=== PATIENT | female | born 1945 | race Caucasian/White ===

== ENCOUNTER 2019-02-21 10:47 | Outpatient (RCR) | payer MEDICARE, SELFPAY | END 2019-03-15 23:59 | disposition home or self-care (01) | LOC: SPT 10:47 | PROVIDERS: Family Provider Physician Assistant; PCP Physician Assistant; Referring Provider Physician Assistant; Visit Provider Physician Assistant | DX: M25.511 Pain in right shoulder (principal) | CPT/HCPCS: 97110; 97161 ==

== ENCOUNTER 2019-03-16 06:00 | Outpatient (RCR) | payer MEDICARE, SELFPAY | END 2019-04-09 12:19 | disposition home or self-care (01) | LOC: SPT 06:00 | PROVIDERS: Family Provider Physician Assistant; PCP Physician Assistant; Referring Provider Physician Assistant; Visit Provider Physician Assistant | DX: M25.511 Pain in right shoulder (principal) | CPT/HCPCS: 97110 ==

== ENCOUNTER 2019-04-25 12:40 | Outpatient (CLI) | payer MEDICARE, SELFPAY ==
--- NOTE | 2019-04-25 12:48 | XR_ITS ---
WS: [id number] DEXA (DUAL ENERGY X-RAY ABSORPTIOMETRY) Bone mineral density was performed using a DN2K machine. HISTORY: OSTEOPOROSIS COMPARISON: 03/12/2015 Lumbar spine BMD (L1-L4): 0.932 g/cm2 T score: -2.1 Z score: -0.8 Total hip BMD: Right: 0.829 g/cm2. T score: -1.4 Z score: -0.2 10 year probability of a major osteoporotic fracture is 23%. Compared to the prior study from 03/12/2015. Lumbar spine bone mineral density has increased by 3.0%. RIGHT hip bone mineral density has increased by 4.0%. XR/XR DEXA axial skeleton* [id number] IMPRESSION: OSTEOPENIA based upon the WHO classification for females. Significant increase in bone mineral density within the lumbar spine and RIGHT hip since the prior study.
== END 2019-04-25 12:41 | disposition home or self-care (01) ==
PROVIDERS: Family Provider Physician Assistant; PCP Physician Assistant; Visit Provider Physician Assistant
DX: M81.0 Age-related osteoporosis without current pathological fracture (principal)
CPT/HCPCS: 77080

== ENCOUNTER 2019-07-05 13:09 | Outpatient (CLI) | payer MEDICARE, SELFPAY ==
--- NOTE | 2019-07-05 13:42 | MR_ITS ---
WS: [id number] MRI RIGHT SHOULDER HISTORY: RIGHT SHOULDER PAIN COMPARISON: None available. TECHNIQUE: Multiplanar sequences of the shoulder joint are submitted. Moderate AC joint arthritis. There is fluid along the joint space. Mild osteophyte encroachment upon the supraspinatus muscle. No fluid in the subacromial or subdeltoid bursa. No os acromion. There is a small joint effusion surrounding the humeral head and extending into the subscapularis rec ess. Small loose bodies are present within the fluid along the subscapularis tendon. There is increased signal in the distal subscapularis, supraspinatus and infraspinatus tendons. No re traction of the tendons or full-thickness tear. No muscle atrophy or edema. There is very significant fraying along the articular surfaces of the supraspinatus and infraspinatus tendons. Complete loss of cartilage over the humeral head with multiple subchondral cystic changes. Humeral he ad is slightly high riding. Significant narrowing of the glenohumeral joint with osteophytes extendin g into the joint space from the humeral head. There is abnormal signal in the anterior superior gleno id and the posterior glenoid. Biceps tendon is in normal position with an increase in fluid within the tendon sheath. MR/MR shoulder RT wo con* [id number] IMPRESSION: 1. Severe glenohumeral joint arthritis with loss of cartilage and subchondral cystic changes and osteophytes. 2. Moderate AC joint arthritis. 3. No full-thickness rotator cuff tear identified although there is significan t fraying along the articular surfaces of the infraspinatus, supraspinatus and subscapularis tendons with tendinopathy. 4. Glenohumeral joint effusion with small loose bodies. 5. Abnormal signal throughout the labrum and cartilage.
== END 2019-07-05 13:10 | disposition home or self-care (01) ==
PROVIDERS: Family Provider Physician Assistant; PCP Physician Assistant; Visit Provider Physician Assistant
DX: M25.511 Pain in right shoulder (principal); M19.011 Primary osteoarthritis, right shoulder; M25.411 Effusion, right shoulder
CPT/HCPCS: 73221

== ENCOUNTER 2019-08-21 12:41 | Outpatient (CLI) | payer MEDICARE, SELFPAY ==
[2019-08-21 12:56] VITALS: BP 121/82; PULSE 86; TEMP 36.6; O2SAT 94
[2019-08-21] MEDS: denosumab 60 mg SDV (13:48)
[2019-08-21 13:54] VITALS: BP 124/84; PULSE 85; TEMP 36.6
== END 2019-08-21 12:42 | disposition home or self-care (01) ==
LOC: RHEOACUTE 12:42
PROVIDERS: Family Provider Physician Assistant; PCP Physician Assistant; Visit Provider Internal Medicine Rheumatology
DX: M81.0 Age-related osteoporosis without current pathological fracture (principal)
CPT/HCPCS: 96372; J0897

== ENCOUNTER 2020-05-12 13:45 | Outpatient (CLI) | payer MEDICARE, SELFPAY ==
[2020-05-12] MEDS: denosumab 60 mg SDV SUBCUT (14:15)
== END 2020-05-12 13:46 | disposition home or self-care (01) ==
LOC: ONCMED 13:53
PROVIDERS: PCP Physician Assistant; Visit Provider Physician Assistant
DX: M81.0 Age-related osteoporosis without current pathological fracture (principal)
CPT/HCPCS: 96372; J0897

== ENCOUNTER → 2020-08-06 11:15 | Outpatient (BNVA) | payer MEDICARE, SELFPAY | PROVIDERS: PCP Physician Assistant; Visit Provider Obstetrics & Gynecology | DX: N39.3 Stress incontinence (female) (male) (principal); N81.4 Uterovaginal prolapse, unspecified; N81.6 Rectocele; Z41.9 Encounter for procedure for purposes other than remedying health state, unspecified; Z20.822 Contact with and (suspected) exposure to COVID-19 | CPT/HCPCS: 87635 ==

== ENCOUNTER 2020-08-11 10:16 | Observation (INO) | payer MEDICARE, SELFPAY ==
[2020-08-06 13:09] VITALS: BMI 26.6
--- NOTE | 2020-08-06 13:47 | ANES.PREANE2 ---
Pre-Anesthetic Assessment Pre-Anesthetic Assessment: Height/Weight: Height 1.73 m Weight 79.379 kg Preop Diagnosis: uterine prolapse, cystocele, rectocele, loose perineal body Proposed Procedure: Operation Date: 08/11/20 07:00 Proposed Procedures p Total Vaginal Hysterectomy [id number] 24390 19630 N81.4 N81.6 N39.3(Not Applicable) - Shaunna Butt MD s bilateral Salpingo Oophorectomy (Open)(Bilateral) - Shaunna Butt MD s Posterior Repair(Not Applicable) - Shaunna Butt MD s possible Anterior Repair(Not Applicable) - Shaunna Butt MD s Perineorrhaphy(Not Applicable) - Shaunna Butt MD s suburethral sling(Not Applicable) - Shaunna Butt MD Familial anesthetic complications: None Social: Social History: No alcohol and No tobacco Exam: Pre-Anes Outpt Exam: alert, oriented x 3, clear to auscultation bilaterally and regular rate & rhythm Airway: Cervical ROM: WNL MP: 2 Dentition: Other (missing) Pulmonary: Comments: hx chronic bronchitis CV/HEM: CV/HEM: HTN Comments: able to achieve 4 METS Metabolic: Metabolic: Hyperlipidemia and Thyroid Anesthetic Plan: ASA status: 2 Anesthesia: General Risk of > 500 ml blood loss (7ml/kg in children): No PFSH Anesthesia PFSH: Medical History Fibromyalgia Hypertension Hypothyroid Lichen sclerosus (~2011) dx by Dr. Mohamud-- biopsy confirmed Recto-vaginal fistula Surgical History Hx of dilation and curettage (1971) Hx of shoulder surgery (~07/2019) R shoulder Hx of tubal ligation (~1979) Family History Mother Hypertension Stroke Hypercholesteremia Family/Other Colon cancer Maternal Aunt Sister Thyroid disease x3 Denies family history of Ovarian cancer Diabetes Heart disease Breast cancer Bleeding disorder Uterine cancer Social History Additional social history: - Tobacco use: never Alcohol use: never Drug use: never Data Anesthesia CBC & Chem 7: 08/06/20 13:20 08/06/20 13:20 Cardiac Studies: No Data to Display
[2020-08-06 13:48] LABS: Eosinophils # 0.1 10^3/uL (0.0-0.8); Eosinophils % 3.4 %; Hematocrit 39.9 % (37.0-47.0); Hemoglobin 12.7 g/dL (11.5-15.3); Lymphocytes # 1.2 10^3/uL (0.8-4.8); Lymphocytes % 30.2 %; Mean Corpuscular HGB Conc 31.8 g/dL (30.0-36.0); Mean Corpuscular Hemoglobin 26.3 pg (28.0-34.0); Mean Corpuscular Volume 82.8 fL (81-99); Mean Platelet Volume 10.4 fL (7.4-10.4); Monocytes # 0.5 10^3/uL (0.2-0.9); Monocytes % 11.9 %; Neutrophils # 2.18 10^3/uL (1.8-7.7); Nucleated Red Blood Cells % 0 %; Platelet Count 256 10^3/cmm (130-400); Red Blood Count 4.82 10^6/uL (4.1-5.3); Red Cell Distribution Width 14.4 % (12.1-15.1); White Blood Count 4.1 10^3/uL (4.0-10.0)
[2020-08-06 14:04] LABS: Anion Gap 12.7 (5-19); Blood Urea Nitrogen 10 mg/dL (8-23); Calcium 8.8 mg/dL (8.5-10.5); Carbon Dioxide 29 mmol/L (22-29); Chloride 104 mmol/L (98-107); Glucose 98 mg/dL (65-115); Osmolality Calculated 293 mOsm/kg (285-295); Potassium 3.7 mmol/L (3.5-5.1); Sodium 142 mmol/L (136-145)
[2020-08-11] VITALS (23 sets, daily range): BP systolic 109–142; BP diastolic 58–81; PULSE 64–88; RESP 13–20; TEMP 36.3–37.2; O2SAT 93–100; BMI 26.6
[2020-08-11] MEDS: acetaminophen 1,000 MG/100 ML PIGGYBACK 400 MG IV (06:40)
[2020-08-11] MEDS: gabapentin 300 mg Capsule PO (06:47)
[2020-08-11] MEDS: sodium chloride 0.9% 1,000 ML 30 ML IV (06:47)
[2020-08-11] MEDS: CELEcoxib 200 mg Capsule 400 MG PO (06:48)
[2020-08-11] MEDS: ketorolac 30 mg/mL INJ IVP ×3 (06:54→19:10)
--- NOTE | 2020-08-11 07:04 | W.PM.OPSUD ---
Surgery/Procedure H&P Update DATE OF PROCEDURE: August 11, 2020 DATE H&P PERFORMED: 08/06/20 H&P UPDATE INFORMATION: I have reviewed H&P completed within last 30 days, I have examined patient prior to procedure and No changes to prior documentation PREOP DIAGNOSIS: uterine prolapse, cystocele, rectocele, loose perineal body PLANNED PROCEDURE: Operation Date: 08/11/20 07:00 Proposed Procedures p Total Vaginal Hysterectomy 77163 57443 16494 31785 N81.4 N81.6 N39.3(Not Applicable) - Shaunna Butt MD s bilateral Salpingo Oophorectomy (Open)(Bilateral) - Shaunna Butt MD s Posterior Repair(Not Applicable) - Shaunna Butt MD s possible Anterior Repair(Not Applicable) - Shaunna Butt MD s Perineorrhaphy(Not Applicable) - Shaunna Butt MD s suburethral sling(Not Applicable) - Shaunna Butt MD
--- NOTE | 2020-08-11 07:26 | P.ANESUD_ITS ---
Pre-Anesthetic Update Pre-Anesthetic Assessment: Date of Surgery/Procedure: 08/11/20 Preop Rachana gnosis: uterine prolapse, cystocele, rectocele, loose perineal body Proposed Procedure: Operation Date: 08/11/20 07:00 Proposed Procedures p Total Vaginal Hysterectomy 85997 44615 24280 84379 N81.4 N81.6 N39.3(Not Applicable) - Shaunna Butt MD s bilateral Salpingo Oophorectomy (Open)(Bilateral) - Shaunna Butt MD s Posterior Repair(Not Applicable) - Shaunna Butt MD s possible Anterior Repair(Not Applicable) - Shaunna Butt MD s Perineorrhaphy(Not Applicable) - Shaunna Butt MD s suburethral sling(Not Applicable) - Shaunna Butt MD Any changes to Pre-Anesthetic Assessment?: No Last Intake: Intake Last Liquid Date 08/10/20 Last Liquid Time 20:00 Last Solid Date 08/10/20 Last Solid Time 20:00 Exam: Pre-Anes Outpt Exam: alert, oriented x 3, clear to auscultation bilaterally and regular rate & rhythm Cardiac Studies: No Data to Display
[2020-08-11] MEDS: vasopressin 20 unit/mL INJ 12 UNIT INJECTION (07:39)
--- NOTE | 2020-08-11 10:11 | P.OP_ITS ---
Operative Report Date of procedure: August 11, 2020 Pre-op Diagnosis: uterine prolapse, cystocele, rectocele, loose perineal body Post-op diagnosis: same Post-op Findings: uterine prolapse, loose perineal body, grade 1 rectocele. Normal efflux from bilateral ureters Procedure Done: total vaginal hysterectomy, cystoscopy, perineorrhaphy Specimens removed/disposition: uterus sent to pathology Anesthesia: General Estimated blood loss (mL): 200 IV fluids (mL): 2,000 Urine output (mL): 1,000 Complications: Lack of indigo carmine causing a delay in case. Methylene blue used but very slow to move through. This cause quite a delay in case. Bilateral spill of methylene blue visualized Condition: stable Disposition: PACU Brief History: The patient presented with symptommatic rectocele and uterine prolapse. She wanted to have surgery to correct defect. Procedure: The patient was taken to the operating room where general anesthesia was administered and found to be adequate. She was prepped and draped in the normal sterile fashion in the dorsal lithotomy position in [facility]. A Moran catheter was placed. A weighted speculum was placed into the vagina and the anterior and posterior lip of the cervix was grasped with a Webster tenaculum. 10 mL of dilute Pitressin was injected at the vesicovaginal junction. A circumferential incision was made at the vesicovaginal junction and the vaginal mucosa reflected cephalad. The posterior peritoneum was entered sharply with the Metzenbaum scissors and the long weighted speculum replaced. The uterus was extremely small and there were no uterosacral ligaments. The vaginal mucosa was reflected all the way to the utero-ovarian ligaments bilaterally. The utero- ovarian ligaments were clamped, cut and suture-ligated bilaterally and the specimen was removed. The bilateral fallopian tubes and ovaries were not able to be visualized. There was some bleeding from the pelvic sidewall on the left. This was clamped, cut and suture ligated and there was excellent hemostasis. Due to this bleeding, I decided to perform the cystoscopy prior to closing the vaginal cuff. The Moran catheter was removed and the cystoscope advanced into the bladder. The patient was given Methylene blue because there was no indigo carmine available, due to shortage. Bilateral spill was noted. There were no injuries or deficits noted in the bladder. The cystoscope was removed and the Moran was replaced. When I went to close the vaginal cuff, the was new moderate bleeding from the vagina. It was difficult to see where the bleeding was coming from. I identified an area on each pelvic sidewall and clamped and suture ligated these areas. There was excellent hemostasis. The vaginal cuff was closed with 0 Vicryl in a running locked pattern incorporating the peritoneum into the cuff. Attention was then turned back to cystoscopy. Since I had put a new stitch on each pelvic sidewall, I wanted to re-visualize the ureteral orifices. The cystoscope was reintroduced back into the bladder. Initially, no efflux was visualized. 5ml of lasix was given IV and the left ureter was seen to efflux. The right ureter had peristalsis, but no efflux. I watched for about 20 minutes [address] no efflux[address] Dr Henry (urology) was called to possibly place a stent. The cystoscope was removed. I turned my attention to the perineorrhaphy. An Allis clamp was placed in the midline, just inside the vaginal vault. A wedge of the perineal body was removed sharply with the scalpel. The incision was repaired in the usual fashion with O-Vicryl. There was excellent hemostasis. Dr. Henry called and said that he would be here in about 10 minutes. I replaced the cystoscope into the bladder and drained all of the fluid, then filled it up again. Immediately, the right ureter began to have peristalsis and it effluxed several times. We notified Dr. Henry that he wasn't needed. The cystoscope was removed and the moran catheter replaced. Vaginal packing was placed for good hemostasis. Tolerated the procedure well. Sponge lap and needle counts were correct x3. She was taken to the recovery room in stable condition.
--- NOTE | 2020-08-11 10:48 | SUR.PHASEI ---
1048- ORAL AIRWAY OUT, SIMPLE MASK AT 6 LPM SAT 97%
--- NOTE | 2020-08-11 14:34 | ANE.PACU2 ---
Inpatient post-anesthesia follow up: Airway intact: Yes Vital signs: Temperature 97.7 F Pulse Rate 75 Respiratory Rate 18 Blood Pressure 141/79 Pulse Oximetry 97 Oxygen Delivery Me thod Nasal Cannula Oxygen Flow Rate 2 Fraction of Inspir ed Oxygen Hydration adequate: Yes Nausea and vomiting: No Pain level: 2 Mental status: Baseline
[2020-08-11] MEDS: dextrose 5%-lactated ringers 1,000 ML 125 ML IV (15:13)
[2020-08-11] MEDS: acetaminophen 325 mg Tablet 650 MG PO (21:25)
[2020-08-12] MEDS: ketorolac 30 mg/mL INJ IVP (01:06)
[2020-08-12 05:20] VITALS: BP 110/65; PULSE 64; RESP 16; TEMP 36.8; O2SAT 93
[2020-08-12 05:40] LABS: Hematocrit 32.7 % (37.0-47.0); Hemoglobin 10.4 g/dL (11.5-15.3); Mean Corpuscular HGB Conc 31.8 g/dL (30.0-36.0); Mean Corpuscular Hemoglobin 27.1 pg (28.0-34.0); Mean Corpuscular Volume 85.2 fL (81-99); Mean Platelet Volume 9.9 fL (7.4-10.4); Platelet Count 211 10^3/cmm (130-400); Red Blood Count 3.84 10^6/uL (4.1-5.3); Red Cell Distribution Width 14.7 % (12.1-15.1); White Blood Count 11.8 10^3/uL (4.0-10.0)
[2020-08-12] MEDS: ibuprofen 800 mg tablet PO (09:23)
[2020-08-12] MEDS: levothyroxine 112 mcg Tablet PO (09:23)
[2020-08-12] MEDS: lisinopril 10 mg Tablet PO (09:23)
--- NOTE | 2020-08-12 10:10 | PM.DCS ---
Discharge Providers Date of Admission: 08/11/20 10:16 Date of Discharge: August 12, 2020 Attending Provider at Admission: Shaunna Butt MD Attending Provider at Discharge: Shaunna Butt MD Primary Care Provider: Makayla Wang Diagnoses at Discharge Discharge Diagnosis (1) Postoperative state: Status: Acute Reason for Visit Reason for Visit: tvh with bilateral salpingo-oophorectomy Hospital Course Hospital Course The patient was admitted for surgery. She did well postoperatively and she was ready for discharge on day #1 Physical Exam Narrative: EXAM NARRATIVE: The patient is doing well this morning. She is pain free. She is tolerating a regular diet. She is ambulating without difficulty Const: COMMON NORMALS: no acute distress, patient oriented x3, no limitations, healthy appearing, alert and well nourished GENERAL APPEARANCE: cooperative, comfortable, well kempt and well developed ORIENTATION/CONSCIOUSNESS: Yes awake, Yes oriented to person, Yes oriented to place and Yes oriented to time Resp: COMMON NORMALS: normal respiratory effort EFFORT & INSPECTION: Yes able to speak in complete sentences : COMMON NORMALS: Yes normal external appearance (small amount of bruising to left crural area) and Yes normal appearance of the vagina BLADDER/KIDNEY EXAM: Yes other (vaginal packing removed) Extremity: COMMON NORMALS: normal to inspection, no clubbing, cyanosis or edema and no calf tenderness Neuro: COMMON NORMALS: patient oriented x3 SENSORIUM/ORIENTATION: Yes alert, Yes oriented to person, Yes oriented to place and Yes oriented to time Psych: COMMON NORMALS: mental status grossly normal, Normal thought process present, cooperative, normal affect, speech normal and activity/motor behavior normal APPEARANCE: Yes well kempt ATTITUDE: Yes calm and Yes engaged ACTIVITY/MOTOR BEHAVIOR: Yes appropriate eye contact SPEECH: Yes normal speech THOUGHT PROCESS: Normal thought process present Skin: WOUNDS: Yes surgical site (clean/dry/intact. Bruising to left crura) Urinary Catheter Management^: Bush: Cath Placed During This Visit: yes Reason for Continuing Indwelling Catheter: Perioperative Use in Selected Surgeries Urinary Catheter Date of Insertion: 08/11/20 Urinary Catheter Time of Insertion: 07:27 Discharge Data Data Completed and Pending: Pending at discharge Category Date Time Status ES surgery / GI i mages Routine Exams 08/11/20 07:24 Ordered Pathology: Surgic al [PTH] Routine Pth 08/11/20 10:26 Received Labs from last 24 hours 08/12/20 05:25 WBC 11.8 H RBC 3.84 L Hgb 10.4 L Hct 32.7 L MCV 85.2 MCH 27.1 L MCHC 31.8 RDW 14.7 Plt Count 211 MPV 9.9 Vitals: Last Vital Signs Temp 98.2 F 08/12/20 05:20 Pulse 64 08/12/20 05:20 Resp 16 08/12/20 05:20 BP 110/65 08/12/20 05:20 Pulse Ox 93 08/12/20 05:20 Discharge Plan Discharge Patient Disposition: Home Condition: Stable Prescriptions: New hydrocodone-acetaminophen 5-325 mg Tablet 1 tab PO Q6H PRN (Reason: Moderate To Severe Pain) Qty: 10 RF: 0 Continued lisinopril 10 mg tablet 10 mg PO DAILY RF: 0 atorvastatin 20 mg tablet 40 mg PO DAILY RF: 0 cyclobenzaprine 5 mg tablet 10 mg PO DAILY RF: 0 levothyroxine 88 mcg capsule 112 mcg PO DAILY RF: 0 multivitamin [One-A-Day Essential] Tablet 1 tab PO DAILY RF: 0 duloxetine 30 mg capsule,delayed release(DR/EC) 30 mg PO DAILY RF: 0 clobetasol 0.05 % cream 1 applic topical .bi-weekly Qty: 30 RF: 2 Discharge Orders: Discharge Order (Routine); Ordered 08/12/20 Ordered By: Shaunna Butt Referrals: Shaunna Butt MD [Physician] - 08/20/20 3:15 pm (1 week post-op appointment: 08/20/20 @3:15 6 week post-op appointment: 09/17/20 @12:45) Patient Instructions: Vaginal Hysterectomy (DC), OB Discharge Report, OB Food/Drug Interaction Guide, Opioid Safety Discharge Attestations Time Spent in Discharge Care*: less than 30 min Quality Metrics Clinical Quality Measures During this hospital stay, did patient experience: None Coding Level of Care Code Acute Chg FW DC note Diagnoses Postoperative state Z98.890
[2020-08-12 11:05] VITALS: BP 153/87; PULSE 71; RESP 17; TEMP 36.8
== END 2020-08-12 11:05 | disposition home or self-care (01) ==
LOC: OBGYN 10:17
PROVIDERS: Admitting Provider Obstetrics & Gynecology; PCP Physician Assistant; Visit Provider Obstetrics & Gynecology
PROC: (CPT 56810; principal; 2020-08-11 07:00)
PROC: 0HQ9XZZ Repair Perineum Skin, External Approach (ICD-10-PCS; CPT 56810; 2020-08-11 07:00)
PROC: 0TJB8ZZ Inspection of Bladder, Via Natural or Artificial Opening Endoscopic (ICD-10-PCS; CPT 52000; 2020-08-11 07:00)
DX: N81.4 Uterovaginal prolapse, unspecified (principal); N81.84 Pelvic muscle wasting; N81.6 Rectocele; I10 Essential (primary) hypertension; E78.5 Hyperlipidemia, unspecified; M79.7 Fibromyalgia; E03.9 Hypothyroidism, unspecified
CPT/HCPCS: 56810; 58260; 36415; 80048; 85025; 85027; 86850; 86900; 87086; 88305; 96365; 96374; G0378; J1100; J1885; J2250; J2370; J2405; J2550; J2704; J2710; J3010; J3370; J3490; J7030; J7050

== ENCOUNTER → 2020-09-10 10:48 | Outpatient (BNVA) | payer MEDICARE, SELFPAY | PROVIDERS: PCP Physician Assistant; Visit Provider Obstetrics & Gynecology | DX: N89.8 Other specified noninflammatory disorders of vagina (principal) | CPT/HCPCS: 87481; 87512; 87798; 87799 ==

== ENCOUNTER 2020-10-12 10:36 | Outpatient (CLI) | payer MEDICARE, SELFPAY ==
--- NOTE | 2020-10-12 10:43 | MM_ITS ---
WS: [id number] BILATERAL DIGITAL SCREENING MAMMOGRAPHY WITH CAD CLINICAL INFORMATION: SCREENING HISTORY: Screening mammogram. No current complaints. COMPARISON: TECHNIQUE: Bilateral CC and MLO views. FINDINGS: Scattered fibroglandular densities bilaterally. Punctate and lucent centered calcifications. Vascular calcification. Parenchymal fibrosis upper outer left breast unchanged. No suspicious focal mass, asy mmetry, calcifications, or architectural distortion. No evidence of malignancy. MM/[place] [id number] IMPRESSION: BI-RADS: 2-Benign FOLLOW UP: 1 Year Follow-up Recommend return to annual screening mammography.
== END 2020-10-12 10:37 | disposition home or self-care (01) ==
LOC: RADSHAW 10:42
PROVIDERS: PCP Physician Assistant; Visit Provider Physician Assistant
DX: Z12.31 Encounter for screening mammogram for malignant neoplasm of breast (principal)
CPT/HCPCS: 77067

== ENCOUNTER 2020-11-16 08:52 | Outpatient (CLI) | payer MEDICARE, SELFPAY ==
[2020-11-16 09:51] LABS: Anion Gap 13.9 (5-19); Blood Urea Nitrogen 17 mg/dL (8-23); Calcium 9.1 mg/dL (8.5-10.5); Carbon Dioxide 28 mmol/L (22-29); Chloride 105 mmol/L (98-107); Glucose 53 mg/dL (65-115); Osmolality Calculated 295 mOsm/kg (285-295); Potassium 3.9 mmol/L (3.5-5.1); Sodium 143 mmol/L (136-145)
== END 2020-11-16 08:53 | disposition home or self-care (01) ==
PROVIDERS: PCP Physician Assistant; Visit Provider Physician Assistant
DX: I10 Essential (primary) hypertension (principal); E03.9 Hypothyroidism, unspecified
CPT/HCPCS: 36415; 80048

== ENCOUNTER 2020-11-19 13:40 | Outpatient (CLI) | payer MEDICARE, SELFPAY ==
[2020-11-19 14:05] VITALS: BP 152/98; PULSE 82; RESP 18; TEMP 36.3; O2SAT 98
[2020-11-19] MEDS: denosumab 60 mg SDV SUBCUT (14:10)
[2020-11-19 14:19] VITALS: BP 145/88; PULSE 81; RESP 18; TEMP 36.3; O2SAT 97
== END 2020-11-19 13:41 | disposition home or self-care (01) ==
PROVIDERS: PCP Physician Assistant; Referring Provider Physician Assistant; Visit Provider Internal Medicine Medical Oncology
DX: M18.0 Bilateral primary osteoarthritis of first carpometacarpal joints (principal); Z79.899 Other long term (current) drug therapy
CPT/HCPCS: 96372; J0897

== ENCOUNTER 2021-05-31 12:43 | Outpatient (CLI) | payer MEDICARE, SELFPAY ==
[2021-05-31 13:05] VITALS: BP 143/84; PULSE 89; RESP 18; TEMP 36.6; O2SAT 97
[2021-05-31] MEDS: denosumab 60 mg SDV SUBCUT (13:10)
[2021-05-31 13:17] VITALS: BP 134/89; PULSE 90; RESP 18; TEMP 36.6; O2SAT 96
== END 2021-05-31 12:44 | disposition home or self-care (01) ==
LOC: ONCMED 12:48
PROVIDERS: PCP Physician Assistant; Visit Provider Physician Assistant
DX: M81.0 Age-related osteoporosis without current pathological fracture (principal)
CPT/HCPCS: 96372; J0897

== ENCOUNTER 2021-11-05 14:11 | Outpatient (CLI) | payer MEDICARE, SELFPAY ==
--- NOTE | 2021-11-05 14:18 | MR_ITS ---
WS: [id number] MRI BRAIN WITH AND WITHOUT CONTRAST HISTORY: WORSENING HEADACHE COMPARISON: None available. TECHNIQUE: Multiplanar imaging performed through the brain with MultiHance 18 ml's IV. No acute infarcts are seen. Laguna-white matter differentiation is well preserved. T2 and FLAIR signal hyperintensities slightly greater on the LEFT within the white matter. Mild to moderate small vessel ischemic disease. There is also mild bilateral ischemic disease within the víctor. No susceptibility artifacts or prior lacunar infarcts. Ventricles and extra-axial spaces are normal. Clivus and pituitary gland are normal. Visualized posterior fossa and brainstem are also normal. Postcontrast images are negative for masses or vascular malformations. Dural venous sinuses are normal. No abnormality noted within the orbits or globes. Paranasal sinuses: Well aerated with no significant disease. Mastoid air cells: Normal. Calvarium and scalp: Normal. MR/MR head wo/w con [id number] IMPRESSION: 1. No acute infarct or mass. 2. Mild atrophy with mild to moderate small vessel ischemic disease slightly g reater throughout the LEFT cerebrum. 3. Very mild bilateral small vessel ischemic disease in the víctor.
[2021-11-05] MEDS: gadobenate dimeglumine 20 mL vial IV (15:26)
== END 2021-11-05 14:12 | disposition home or self-care (01) ==
LOC: RAD 14:11
PROVIDERS: PCP Physician Assistant; Visit Provider Physician Assistant
DX: R51.9 Headache, unspecified (principal); G31.9 Degenerative disease of nervous system, unspecified; I67.82 Cerebral ischemia
CPT/HCPCS: 70553

== ENCOUNTER 2021-12-02 10:39 | Outpatient (CLI) | payer MEDICARE, SELFPAY ==
[2021-12-02 10:59] VITALS: BP 145/95; PULSE 82; RESP 18; TEMP 36.1; O2SAT 96
[2021-12-02] MEDS: denosumab 60 mg SDV SUBCUT (11:12)
[2021-12-02 11:20] VITALS: BP 134/83; PULSE 80; RESP 18; TEMP 36.1; O2SAT 97
== END 2021-12-02 10:40 | disposition home or self-care (01) ==
PROVIDERS: PCP Physician Assistant; Visit Provider Physician Assistant
DX: M81.0 Age-related osteoporosis without current pathological fracture (principal); I25.10 Atherosclerotic heart disease of native coronary artery without angina pectoris; Z79.899 Other long term (current) drug therapy; I27.20 Pulmonary hypertension, unspecified; I36.1 Nonrheumatic tricuspid (valve) insufficiency; R21 Rash and other nonspecific skin eruption; I50.9 Heart failure, unspecified
CPT/HCPCS: 96372; J0897

== ENCOUNTER 2022-05-20 10:19 | Oncology outpatient (recurring) (ONCR) | payer MEDICARE, SELFPAY ==
[2022-05-20] MEDS: denosumab 60 mg SDV SUBCUT (10:44)
[2022-05-20 10:47] VITALS: BP 138/92; PULSE 76; RESP 18; TEMP 35.8; O2SAT 96
== END 2022-06-12 23:59 | disposition home or self-care (01) ==
LOC: ONCMED 10:23
PROVIDERS: PCP Physician Assistant; Visit Provider Physician Assistant
DX: M81.0 Age-related osteoporosis without current pathological fracture (principal)
CPT/HCPCS: 96372; J0897

== ENCOUNTER → 2022-09-06 08:42 | Outpatient (BNVA) | payer MEDICARE, SELFPAY | PROVIDERS: PCP Physician Assistant; Referring Provider Physician Assistant; Visit Provider Psychiatry & Neurology Neurology | DX: G44.89 Other headache syndrome (principal); S16.1XXA Strain of muscle, fascia and tendon at neck level, initial encounter; X58.XXXA Exposure to other specified factors, initial encounter | CPT/HCPCS: 99203 ==

== ENCOUNTER 2022-10-04 09:03 | Outpatient (CLI) | payer MEDICARE, SELFPAY ==
--- NOTE | 2022-10-04 09:30 | MR_ITS ---
WS: [id number] MRI CERVICAL SPINE NONCONTRAST HISTORY: R51.9 - Headache, unspecified COMPARISON: None available. Technique: Multiplanar, multisequence noncontrast imaging of the cervical spine. Straightening and mild reversal of the normal cervical lordosis. Disc spaces are narrowed throughout the cervical spine. C4 anterolisthesis by 2 mm. Signal within the cervical cord is normal. Visualized posterior fossa is unremarkable. Craniocervical junction, C1 and C2 relationship, odontoid process and soft tissues are normal. C2-C3: Normal. C3-C4: Normal. C4-C5: Moderate sized RIGHT foraminal disc osteophyte complex. Moderate RIGHT foraminal stenosis. Liu ateral facet joint arthritis. Smaller foraminal osteophytes on the LEFT with only minimal narrowing. C5-C6: Diffuse annular disc bulging with osteophytic ridging. Small central disc protrusion. Mild fac et arthritis. Moderate bilateral foraminal stenosis. C6-C7: Diffuse annular disc bulge. Moderate LEFT foraminal disc osteophyte causing moderate to severe stenosis. Additional disc osteophyte contacts in the RIGHT foramen with moderate stenosis. Shallow L EFT paracentral disc protrusion. No central stenosis. C7-T1: No stenosis. Paraspinal soft tissue are normal. IMPRESSION: 1. Moderate cervical spondylosis with reversal of the normal lordosis. 2. C4 anterolisthesis by 2 mm. 3. C4-5: Moderate sized RIGHT foraminal disc osteophyte complex resulting in moderate stenosis. Minim al narrowing LEFT foraminal stenosis. 4. C5-6: Moderate bilateral foraminal stenosis and a small central disc protrusion. 5. C6-7: Moderate LEFT foraminal disc osteophyte complex causing moderate to severe stenosis. Moderat e RIGHT foraminal stenosis due to disc and osteophyte disease.
--- NOTE | 2022-10-04 10:45 | USCV_ITS ---
Dolores Karyn Age: 77 Gender: F : 1945 Exam Date: 10/04/2022 10:16 Ordering Phys: Reid Poon MD Technologist: Perla Yusuf Exam Location: [facility] [place] Indication: Headaches Risk Factors: Chronic headaches Previous Vascular Surgery: None Right Brachial BP: / Left Brachial BP: / Right Left Velocity (cm/s) Spectral Plaque Velocity (cm/s) Spectral Plaque Syst/Diast Broadening Syst/Diast Broadening 38.50/ 10.10 Prox CCA 50.70 / 16.60 40.60/ 10.70 Mid CCA 43.80 / 13.90 33.10/ 10.10 Distal CCA 42.20 / 12.80 42.70/ 12.30 Prox ICA 41.70 / 17.70 40.60/ 17.10 Mid ICA 54.90 / 19.60 40.60/ 16.60 Distal ICA 80.90 / 32.60 43.30 ECA 50.60 1.05 ICA/CCA 1.85 Antegrade Vertebral Antegrade 54.50/ 15.00 cm/s 57.90/ 18.10 cm/s Tri Subclavian Lee 45.90 77.70 FINDINGS Intimal thickening of the common carotid and internal carotid arteries bilaterally. Antegrade flow in the vertebral arteries bilaterally. Normal Doppler flow velocities in the external carotid and subclavian arteries bilaterally CONCLUSIONS Intimal thickening of the common carotid and internal carotid arteries bilaterally. No significant stenosis in any of the arteries mentioned above, based on the above findings Dr Sandro Freeman MD [facility] (Electronically Signed) Final Date: 07 October 2022 10:24 S
== END 2022-10-04 09:04 | disposition home or self-care (01) ==
LOC: RAD 09:05
PROVIDERS: PCP Physician Assistant; Visit Provider Psychiatry & Neurology Neurology
DX: R51.9 Headache, unspecified (principal); I77.9 Disorder of arteries and arterioles, unspecified; M47.812 Spondylosis without myelopathy or radiculopathy, cervical region; M48.02 Spinal stenosis, cervical region; M25.78 Osteophyte, vertebrae; M50.222 Other cervical disc displacement at C5-C6 level
CPT/HCPCS: 72141; 93880

== ENCOUNTER → 2022-10-18 13:49 | Outpatient (BNVA) | payer MEDICARE, SELFPAY | PROVIDERS: PCP Physician Assistant; Visit Provider Psychiatry & Neurology Neurology | DX: R51.9 Headache, unspecified (principal); M47.892 Other spondylosis, cervical region | CPT/HCPCS: 99212 ==

== ENCOUNTER → 2022-11-01 13:52 | Outpatient (BNVA) | payer MEDICARE, SELFPAY | PROVIDERS: PCP Physician Assistant; Referring Provider Psychiatry & Neurology Neurology; Visit Provider Orthopaedic Surgery | DX: M47.812 Spondylosis without myelopathy or radiculopathy, cervical region (principal); M48.00 Spinal stenosis, site unspecified | CPT/HCPCS: 72040; 99204 ==

== ENCOUNTER 2022-12-14 07:58 | Oncology outpatient (recurring) (ONCR) | payer MEDICARE, SELFPAY ==
[2022-12-14 08:17] VITALS: BP 154/95; PULSE 67; RESP 16; TEMP 36.6; O2SAT 97; BMI 26.0
[2022-12-14] MEDS: denosumab 60 mg SDV SUBCUT (08:21)
[2022-12-14 08:23] VITALS: BP 154/95; PULSE 67; RESP 16; TEMP 36.6; O2SAT 97
== END 2023-01-12 23:59 | disposition home or self-care (01) ==
LOC: ONCMED 07:59
PROVIDERS: PCP Physician Assistant; Visit Provider Physician Assistant
DX: M81.0 Age-related osteoporosis without current pathological fracture (principal)
CPT/HCPCS: 96372; J0897

== ENCOUNTER → 2022-12-15 08:10 | Outpatient (BNVA) | payer MEDICARE, SELFPAY | PROVIDERS: PCP Physician Assistant; Referring Provider Orthopaedic Surgery; Visit Provider Anesthesiology Pain Medicine | DX: M51.17 Intervertebral disc disorders with radiculopathy, lumbosacral region (principal); M47.812 Spondylosis without myelopathy or radiculopathy, cervical region; M43.12 Spondylolisthesis, cervical region | CPT/HCPCS: 99204 ==

== ENCOUNTER 2022-12-16 12:42 | Outpatient (CLI) | payer MEDICARE, SELFPAY ==
--- NOTE | 2022-12-16 13:04 | MM_ITS ---
WS: [id number] BILATERAL 3D TOMOSYNTHESIS DIGITAL SCREENING MAMMOGRAPHY WITH CAD CLINICAL INFORMATION: SCREENING HISTORY: Screening mammogram. No current complaints. COMPARISON: 2020 TECHNIQUE: Bilateral CC and MLO views. FINDINGS: Scattered fibroglandular densities bilaterally. No suspicious focal mass, asymmetry, calcifications, or architectural distortion. No evidence of malignancy. Vascular calcification. IMPRESSION: MM/[place] [id number] BI-RADS: 2-Benign FOLLOW UP: 1 Year Follow-up Recommend return to annual screening mammography.
--- NOTE | 2022-12-16 13:35 | XR_ITS ---
WS: [id number] SCREENING DEXA SCAN [facility] CLINICAL INFORMATION: SCREENING; POST MENOPAUSAL COMPARISON: None. FINDINGS: The L1-L4 bone mineral density measures 0.999 g/cm2. This corresponds to a T score score of -1.5 and Z score of -0.2. Left femoral neck bone mineral density measures 0.857 g/cm2. This corresponds to a T score of -1.2 an d Z score of 0.3. Right femoral neck bone mineral density measures 0.805 g/cm2. This corresponds to a T score -1.6of an d Z score of -0.2. Mean femoral neck bone mineral density measures 0.831 g/cm2. This corresponds to a T score of -1.4 an d Z score of 0.0. IMPRESSION: Osteopenia lumbar spine. Osteopenia femoral necks. Patient's FRAX calculated 10 year probability for major osteoporotic fracture is 29.7% and osteoporot ic hip fracture is 19.3%. Bone mineral density lumbar spine increased 7.2% Bone mineral density femoral necks increased 1.3%
== END 2022-12-16 12:43 | disposition home or self-care (01) ==
LOC: RAD 12:42
PROVIDERS: PCP Physician Assistant; Visit Provider Physician Assistant
DX: Z12.31 Encounter for screening mammogram for malignant neoplasm of breast (principal); Z13.820 Encounter for screening for osteoporosis; Z78.0 Asymptomatic menopausal state; M85.88 Other specified disorders of bone density and structure, other site
CPT/HCPCS: 77063; 77067; 77080

== ENCOUNTER → 2023-01-10 10:33 | Outpatient (BNVA) | payer MEDICARE, SELFPAY | PROVIDERS: PCP Physician Assistant; Visit Provider Anesthesiology Pain Medicine | DX: M54.81 Occipital neuralgia (principal); M54.2 Cervicalgia | CPT/HCPCS: 64405; 99214; J1030; J3490 ==

== ENCOUNTER → 2023-03-02 10:20 | Outpatient (BNVA) | payer MEDICARE, SELFPAY | PROVIDERS: PCP Physician Assistant; Visit Provider Anesthesiology Pain Medicine | DX: M51.17 Intervertebral disc disorders with radiculopathy, lumbosacral region (principal); M47.812 Spondylosis without myelopathy or radiculopathy, cervical region; M43.12 Spondylolisthesis, cervical region; M48.02 Spinal stenosis, cervical region | CPT/HCPCS: 99214 ==

== ENCOUNTER → 2023-03-20 13:44 | Outpatient (BNVA) | payer MEDICARE, SELFPAY | PROVIDERS: PCP Physician Assistant; Visit Provider Psychiatry & Neurology Neurology | DX: R51.9 Headache, unspecified (principal); M62.838 Other muscle spasm | CPT/HCPCS: 99212 ==

== ENCOUNTER → 2023-06-01 08:58 | Outpatient (BNVA) | payer MEDICARE, SELFPAY | PROVIDERS: PCP Physician Assistant; Visit Provider Anesthesiology Pain Medicine | DX: M51.17 Intervertebral disc disorders with radiculopathy, lumbosacral region (principal); M47.812 Spondylosis without myelopathy or radiculopathy, cervical region; M43.12 Spondylolisthesis, cervical region; M48.02 Spinal stenosis, cervical region | CPT/HCPCS: 99214 ==

== ENCOUNTER → 2023-07-19 09:52 | Outpatient (BNVA) | payer MEDICARE, SELFPAY | PROVIDERS: PCP Physician Assistant; Visit Provider Anesthesiology Pain Medicine | DX: M51.17 Intervertebral disc disorders with radiculopathy, lumbosacral region (principal); M47.812 Spondylosis without myelopathy or radiculopathy, cervical region; M43.12 Spondylolisthesis, cervical region; M48.02 Spinal stenosis, cervical region | CPT/HCPCS: 99214 ==

== ENCOUNTER 2023-09-21 14:16 | Oncology outpatient (recurring) (ONCR) | payer MEDICARE, SELFPAY ==
[2023-09-21 15:23] VITALS: BP 122/79; PULSE 57; RESP 16; TEMP 36.4; O2SAT 95
[2023-09-21] MEDS: denosumab 60 mg SDV SUBCUT (15:24)
== END 2023-10-14 23:55 | disposition home or self-care (01) ==
PROVIDERS: PCP Physician Assistant; Visit Provider Physician Assistant
DX: M81.0 Age-related osteoporosis without current pathological fracture (principal); Z79.899 Other long term (current) drug therapy
CPT/HCPCS: 96372; J0897

== ENCOUNTER → 2023-10-02 12:39 | Outpatient (BNVA) | payer MEDICARE, SELFPAY | PROVIDERS: PCP Physician Assistant; Visit Provider Psychiatry & Neurology Neurology | DX: R51.9 Headache, unspecified (principal); M54.10 Radiculopathy, site unspecified; M79.671 Pain in right foot; M79.672 Pain in left foot; S16.1XXA Strain of muscle, fascia and tendon at neck level, initial encounter; X58.XXXA Exposure to other specified factors, initial encounter | CPT/HCPCS: 99212 ==

== ENCOUNTER → 2023-10-17 13:27 | Outpatient (BNVA) | payer MEDICARE, SELFPAY | PROVIDERS: PCP Electrodiagnostic Medicine; Visit Provider Podiatrist Foot & Ankle Surgery | DX: M79.671 Pain in right foot (principal); M79.672 Pain in left foot | CPT/HCPCS: 73630; 99203 ==

== ENCOUNTER 2023-10-26 11:46 | Outpatient (CLI) | payer MEDICARE, SELFPAY ==
--- NOTE | 2023-10-26 12:15 | MR_ITS ---
WS: [id number] MRI LUMBAR SPINE WITH AND WITHOUT CONTRAST HISTORY: R51.9 - Headache, unspecified COMPARISON: None available. TECHNIQUE: Sagittal and axial multisequence imaging is submitted. Post MultiHance imaging. Cervical spondylosis. Mild LEFT curvature lumbar spine. Disc spaces are narrowed and desiccated. Most significant degenerative disc disease at L2-3. Conus terminates normally at L1-2 disc level. L1-L2: Mild annular disc bulging and ligamentum flavum hypertrophy. No stenosis. L2-L3: Marked annular disc bulging with osteophytic ridging. Bilateral facet joint arthritis. Mild ce ntral stenosis. Slightly greater encroachment upon the traversing RIGHT L3 nerve root. Minimal forami nal narrowing. L3-L4: Mild asymmetric disc bulging. Central disc protrusion and LEFT foraminal broad-based disc prot rusion. Effacement of ventral CSF and narrowing of the subarticular recesses. There is mild disc encr oachment upon the traversing L4 nerve roots. Mild central with mild subarticular recess and foraminal stenosis. L4-L5: Diffuse annular disc bulging. Central disc fissure. Marked facet arthritis and ligamentum flav um hypertrophy. Mild central, subarticular recess and foraminal stenosis, LEFT greater than RIGHT. Mi ld encroachment upon the traversing L5 nerve roots. L5-S1: Diffuse disc bulging and mild osteophytic ridging. Mild disc encroachment upon the LEFT S1 ner ve root. Mild bilateral foraminal narrowing, LEFT greater than RIGHT. Normal paravertebral soft tissues. No discitis or osteomyelitis. No enhancing masses. MR/MR lumbar spine wo/w con [id number] IMPRESSION: 1. Degenerative rotoscoliosis lumbar spine. 2. Advanced degenerative disc disease at L2-3. 3. L2-3: Mild central stenosis with mild disc encroachment on the traversing R IGHT L3 nerve root. 4. L3-4: Small central disc protrusion and LEFT foraminal broad-based protrusi on. Disc encroachment upon the traversing L4 nerve roots. Mild central, bilater al subarticular recess and foraminal stenosis. 5. L4-5: Mild central, bilateral subarticular recess and foraminal stenosis, L EFT greater than RIGHT. 6. L5-S1: Mild bilateral foraminal narrowing, LEFT greater than RIGHT. 7. No discitis or osteomyelitis.
[2023-10-26] MEDS: gadobenate dimeglumine 20 mL vial IV (14:31)
== END 2023-10-26 11:47 | disposition home or self-care (01) ==
LOC: RAD 11:47
PROVIDERS: PCP Electrodiagnostic Medicine; Visit Provider Psychiatry & Neurology Neurology
DX: M47.892 Other spondylosis, cervical region (principal); M25.78 Osteophyte, vertebrae; M41.86 Other forms of scoliosis, lumbar region; M51.36 Other intervertebral disc degeneration, lumbar region; M47.896 Other spondylosis, lumbar region; R51.9 Headache, unspecified; M62.838 Other muscle spasm
CPT/HCPCS: 72158

== ENCOUNTER 2023-11-09 11:34 | Outpatient (CLI) | payer MEDICARE, SELFPAY ==
--- NOTE | 2023-11-09 12:07 | US_ITS ---
WS: [id number] Thyroid ultrasound, 11/09/2023 Clinical Data: HYPOTHYROIDISM Comparison: None. Findings: The right lobe of thyroid measures 3.2 cm x 0.8 cm x 1.0 cm. The left lobe measures 2.8 cm x 0.7 cm x 0.7 cm. The isthmus measured 0.1 mm. The echotexture of the thyroid is uniform. No nodules, cysts or masses are seen. US/US thyroid [id number] Impression: Normal thyroid ultrasound.
== END 2023-11-09 11:35 | disposition home or self-care (01) ==
LOC: RAD 11:34
PROVIDERS: PCP Physician Assistant; Visit Provider Electrodiagnostic Medicine
DX: E03.9 Hypothyroidism, unspecified (principal)
CPT/HCPCS: 76536

== ENCOUNTER → 2023-11-16 13:51 | Outpatient (BNVA) | payer MEDICARE, SELFPAY | PROVIDERS: PCP Physician Assistant; Visit Provider Orthopaedic Surgery | DX: M54.50 Low back pain, unspecified (principal) | CPT/HCPCS: 72110; 99214 ==

== ENCOUNTER → 2023-12-04 13:59 | Outpatient (BNVA) | payer MEDICARE, SELFPAY | PROVIDERS: PCP Electrodiagnostic Medicine; Visit Provider Podiatrist Foot & Ankle Surgery | DX: M79.671 Pain in right foot (principal); M79.672 Pain in left foot | CPT/HCPCS: 99213 ==

== ENCOUNTER → 2023-12-06 11:48 | Outpatient (BNVA) | payer MEDICARE, SELFPAY | PROVIDERS: PCP Electrodiagnostic Medicine; Referring Provider Psychiatry & Neurology Neurology; Visit Provider Psychiatry & Neurology Neurology | DX: M48.062 Spinal stenosis, lumbar region with neurogenic claudication (principal); G57.50 Tarsal tunnel syndrome, unspecified lower limb; G62.89 Other specified polyneuropathies | CPT/HCPCS: 95911 ==

== ENCOUNTER → 2024-01-15 14:20 | Outpatient (BNVA) | payer MEDICARE, SELFPAY | PROVIDERS: PCP Physician Assistant; Visit Provider Psychiatry & Neurology Neurology | DX: R51.9 Headache, unspecified (principal); M62.838 Other muscle spasm; M47.812 Spondylosis without myelopathy or radiculopathy, cervical region; G89.29 Other chronic pain; M48.061 Spinal stenosis, lumbar region without neurogenic claudication; M54.41 Lumbago with sciatica, right side; M54.42 Lumbago with sciatica, left side; M79.671 Pain in right foot; M79.672 Pain in left foot; M41.9 Scoliosis, unspecified | CPT/HCPCS: 99212; 99214 ==

== ENCOUNTER → 2024-03-04 13:55 | Outpatient (BNVA) | payer MEDICARE, SELFPAY | PROVIDERS: PCP Physician Assistant; Visit Provider Anesthesiology Pain Medicine | DX: M48.062 Spinal stenosis, lumbar region with neurogenic claudication (principal); M54.2 Cervicalgia | CPT/HCPCS: 99214 ==

== ENCOUNTER → 2024-03-20 13:18 | Outpatient (BNVA) | payer MEDICARE, SELFPAY | PROVIDERS: PCP Physician Assistant; Visit Provider Anesthesiology Pain Medicine | DX: M54.81 Occipital neuralgia (principal); M54.2 Cervicalgia; M48.062 Spinal stenosis, lumbar region with neurogenic claudication; M47.816 Spondylosis without myelopathy or radiculopathy, lumbar region | CPT/HCPCS: 64405; 99214; J1010; J3490 ==

== ENCOUNTER → 2024-07-16 13:25 | Outpatient (BNVA) | payer MEDICARE, SELFPAY | PROVIDERS: PCP Electrodiagnostic Medicine; Visit Provider Psychiatry & Neurology Neurology | DX: R51.9 Headache, unspecified (principal); M62.838 Other muscle spasm | CPT/HCPCS: 99212 ==